=== PATIENT | male | born 1950 | race Caucasian/White ===

== ENCOUNTER 2017-01-12 11:34 | Inpatient (IN) ==
[2017-01-12] MEDS ORDERED: HUMALOG SUBQ SCH (16:00)
[2017-01-12 16:37] LABS: MANUAL DIFF NEEDED? NO
[2017-01-12 16:43] LABS: ALLEN TEST NO; BE 2.8 mmoll (-3.0-3.0); BLOOD TYPE ARTERIAL; DRAW SITE R BRACHIAL; METHB 0.9 % (0.0-1.5); O2(CT) 14.4 mL/dL (15.0-23.0); PCO2(98.6) 40 mmHg (35-45); PO2(98.6) 97 mmHg (60-100); SAMPLE BLOOD; SAO2 98.6 % (95.0-100.0); THB 10.6 g/dL (11.5-17.4); pH(98.6) 7.44 (7.35-7.45)
[2017-01-12 16:46] LABS: MODALITY ROOM AIR
[2017-01-12 16:46] LABS: BASO% 0.7 % (0.0-0.8); EOS# 0.45 X1000 (0.0-0.7); EOS% 6.2 % (0.0-10.0); HEMATOCRIT 34.6 % (42.0-52.0); HEMOGLOBIN 11.4 g/dL (14.0-18.0); LYMPH# 1.26 X1000 (1.2-3.4); LYMPH% 17.5 % (20.5-51.1); MCH 28.1 PG (27-31); MCHC 32.9 g/dL (33-37); MCV 85.4 FL (81-99); MONO# 0.39 X1000 (0.11-0.59); MONO% 5.4 % (1.7-9.3); MPV 10.7 FL (7.4-10.4); NEUT% 70.2 % (42.2-75.2); PLT 260 X1000 (130-400); RBC 4.05 XMIL (4.7-6.1)
--- NOTE | 2017-01-12 16:47 | Diag Imaging Result Doc PS360 ---
EXAM: CHEST-2 VIEWS - 01/12/2017 HISTORY: SOB TECHNIQUE: Chest two views COMPARISON: 04/07/2016 FINDINGS: Heart size is normal. There is chronic mild elevation of the right hemidiaphragm. The lungs appear clear. There is no pleural effusion or pneumothorax identified. IMPRESSION: Chronic mild elevation of right hemidiaphragm. No evidence of acute disease. Electronically signed by Afshin Owens 01/12/2017 4:44 PM
[2017-01-12] MEDS: NS 1,000 ML IV SCH ×2 (16:48→21:45)
[2017-01-12] MEDS: LOVENOX SUBQ SCH (16:48)
[2017-01-12 17:03] LABS: ALBUMIN 3.5 g/dL (3.5-5.0); CALCIUM 9.3 mg/dL (8.8-10.2); POTASSIUM 4.4 mmol/L (3.5-5.1); TOTAL BILIRUBIN 0.28 mg/dL (0.20-1.00); TOTAL PROTEIN 7.4 g/dL (6.3-8.3)
[2017-01-12 17:08] LABS: HEMOGLOBIN A1C 9.1 % (4.8-6.0)
[2017-01-12] MEDS ORDERED: NITROGLYCERIN SL PRN (18:13)
[2017-01-12] MEDS ORDERED: INSULIN PEN NEEDLES ONE (21:26)
[2017-01-12] MEDS: LIPITOR PO SCH (21:45)
[2017-01-12] MEDS: TRILEPTAL PO SCH (21:45)
[2017-01-12] MEDS: LOTRISONE CREAM TOP SCH (21:45)
[2017-01-12] MEDS: TOPROL XL PO SCH (21:46)
[2017-01-12] MEDS: HUMULIN R SUBQ SCH (21:53)
[2017-01-12] MEDS: LANTUS SUBQ SCH (22:00)
--- NOTE | 2017-01-12 22:04 | HISTORY AND PHYSICAL ---
CHIEF COMPLAINT: 1. Uncontrolled diabetes. 2. Noncompliant. Blood sugars running 500. 3. Polyuria and polydipsia and he has a Pierce catheter. 4. Dehydration. 5. Dizziness. Upon standing in my office blood pressure was 90/60. HISTORY OF PRESENT ILLNESS: He is a 66-year-old, white gentleman, recently discharged from the [facility] after back surgery. He has not been followed with diet with uncontrolled diabetes. Last A1c was 11. He is noncompliant. I am afraid that he is going to go to hyperglycemic dehydration. It was extremely hot. He did not have any kind of family support. He has been hospitalized for uncontrolled diabetes and hyperglycemic dehydration. As a result, a hospital admission was warranted. PAST MEDICAL HISTORY: 1. Diastolic heart failure. EF 70%. 2. Noncritical coronary artery disease. Left heart catheterization in 2016 in [place]. 3. Uncontrolled diabetes. 4. Diabetic peripheral neuropathy. 5. Acid reflux disease. 6. Hyperlipidemia. 7. Neurogenic bladder. 8. Paroxysmal atrial fibrillation. 9. 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 10. Moderate left carotid stenosis 60-70%. 11. Moderate left SFA and common femoral artery stenosis. PAST SURGICAL HISTORY: Recent back surgery. Surgery on the left eye. Foot surgery in the left foot. MEDICINES IN MY OFFICE: Aspirin 80 mg daily, Plavix 75 daily, Lanoxin 125 mcg daily, Fenofibrate 134 mg daily, Lasix 20 mg daily, gabapentin 800 t.i.d., metformin 1000 p.o. b.i.d., Prilosec 40 daily, Trileptal 600 p.o. b.i.d. ALLERGIES: Not known. SOCIAL HISTORY: Single. Lives in [place]. No smoking. No alcohol. . 2 children. FAMILY HISTORY: Father of heart attack at 87. Mom of stroke at 91. Brothers from lung and prostate cancer and from accident. HEALTH MAINTENANCE: Last prostate exam May 2016. PSA May [address] Kiran. REVIEW OF SYSTEMS: HEENT: No headache. Slight dizziness upon standing. No earache. No sore throat. No dry mouth. Neck: Bruit on the left side. No neck pain. No goiter. Cardiopulmonary: No chest pain, shortness of breath, PND, orthopnea. GI: No nausea, vomiting, abdominal pain. No altered bowel habits. : He has a Pierce catheter for neurogenic bladder. Changing once a month. Musculoskeletal: Leg cramps left leg. Also decreased sensory exam in both feet due to neuropathy. Neurologic: No obvious focal symptoms or weakness. He has back pain. Had a recent surgery done. PHYSICAL EXAMINATION: VITAL SIGNS: Afebrile. Vitals are stable. Now blood pressure is 140/70. In my office 90/60. Heart rate is 101. 6 feet 2, 207 pounds. HEENT: Atraumatic, normocephalic. Pupils equal, react to light. TMs are normal. Nose and throat within normal limits. NECK: Supple. No lymphadenopathy. No goiter. CHEST: Bilateral air entry. No rales, no wheezing. HEART: Sounds are regular. ABDOMEN: Belly is soft, nontender. Good bowel sounds. No masses palpable. RECTAL: Deferred. Pierce catheter was placed. Decreased pulses in both feet as well as sensory exam. No signs of gangrene noted. No obvious neurological deficits. INVESTIGATIONS: CBC: White cell count 7.2, hematocrit 34, platelets 268,000. ABG: PH is 7.44, pCO2 40, PO2 97 on room air. SMA7 is normal. Glucose 308. In my office was 450. A1c 9.1. ProBNP was normal. Chest x-ray was stable. Labs in my office, PSA 1. A1c 11.4. C-peptide is 6. ASSESSMENT: A 66-year-old white gentleman admitted to the hospital with hypotension, tachycardia, uncontrolled diabetes due to noncompliance. Elevated C-peptide. The patient is taking 80 units of Lantus PLAN OF CARE: 1. Intravenous fluids. 2. Outpatient diabetic teaching classes. 3. Increase the metformin 850 mg t.i.d., along with B12 tablets. 4. Januvia and Lantus 40 units at bedtime and follow up. 5. Moderate left carotid stenosis. We will monitor once a year. Continue on aspirin, Plavix. 6. Noncritical coronary artery disease. Stable. 7. Peripheral arterial disease. Continue on aspirin, Plavix. 8. Neuropathy pain, Neurontin 800 t.i.d. 9. Paroxysmal atrial fibrillation. On Lanoxin and diltiazem. 10. Hypertension, on metoprolol. 11. Hyperlipidemia on Lipitor and Tricor. Also consider using low dose of MANPREET for diabetic nephropathy once the blood pressure is in control and we will follow up. cc: Bernard Hernadez MD MTDD
[2017-01-13] MEDS: LANTUS SUBQ SCH ×2 (01:49→21:30)
[2017-01-13 07:14] LABS: AGAP 14; BUN 16 mg/dL (8-22); CHLORIDE 100 mmol/L (98-107); COSMO 280; POTASSIUM 3.9 mmol/L (3.5-5.1); SODIUM 140 mmol/L (136-145); TCO2 26 mmol/L (25-35)
[2017-01-13] MEDS: NS 1,000 ML IV SCH ×2 (07:34→16:02)
[2017-01-13] MEDS: HUMULIN R SUBQ SCH ×4 (07:34→21:29)
[2017-01-13] MEDS: PRINIVIL PO SCH (08:26)
[2017-01-13] MEDS: PRILOSEC PO SCH (08:27)
[2017-01-13] MEDS: NEURONTIN PO SCH ×3 (08:27→16:02)
[2017-01-13] MEDS: JANUVIA PO SCH (08:27)
[2017-01-13] MEDS: TRICOR PO SCH (08:28)
[2017-01-13] MEDS: CYANOCOBALAMIN IM SCH (08:28)
[2017-01-13] MEDS: GLUCOPHAGE PO SCH ×3 (08:28→16:02)
[2017-01-13] MEDS: TRILEPTAL PO SCH ×2 (08:28→21:26)
[2017-01-13] MEDS: ASPIRIN PO SCH (08:28)
[2017-01-13] MEDS: PLAVIX PO SCH (08:28)
[2017-01-13] MEDS: LANOXIN PO SCH (08:29)
[2017-01-13] MEDS: LOTRISONE CREAM TOP SCH ×2 (08:29→21:40)
[2017-01-13] MEDS ORDERED: CARDIZEM CD PO SCH (09:00)
[2017-01-13] MEDS: LOVENOX SUBQ SCH (14:27)
[2017-01-13] MEDS: PERCOCET-5 PO PRN (16:33)
--- NOTE | 2017-01-13 19:47 | PROGRESS NOTE ---
DATE: 01/13/2017 SUBJECTIVE: The complains of back pain from the recent surgery. REVIEW OF SYSTEMS: Otherwise none reported. Input and output are positive 260. PHYSICAL EXAMINATION: vital signs: He is afebrile. Vitals are stable. He is not orthostatic. HEENT: Within normal limits. Neck: Supple. Chest: Clear. Heart: Sounds are regular. Abdomen: Belly is soft, nontender. Good bowel sounds. No focal deficits. LABORATORY: Hemoglobin A1c is 9.1. C-peptide 0.8. ASSESSMENT AND PLAN: 1. Uncontrolled diabetes. Insulinopenic. Low C-peptide. Continue on the Lantus 40 units twice daily and metformin 850 t.i.d. along with B12 tablets. 2. Deep venous thrombosis prophylaxis with Lovenox. 3. Hypotension. We will continue to monitor orthostatic. 4. We will add a low dose of Prinivil to prevent diabetic nephropathy and chronic back pain with Percocet as needed. 5. Disposition: If she is stable, we will discharge home in the morning with outpatient diabetic teaching classes. 6. Hyperlipidemia on Lipitor. 7. Left internal carotid artery stenosis and bilateral superficial femoral artery stenosis. Stable. Continue on medical management. I will follow up. LEVEL OF DOCUMENTATION: 25 minutes. cc: Bernard Hernadez MD
[2017-01-13] MEDS: TOPROL XL PO SCH (21:26)
[2017-01-13] MEDS: LIPITOR PO SCH (21:26)
[2017-01-14] MEDS: NS 1,000 ML IV SCH (04:53)
[2017-01-14] MEDS: HUMULIN R SUBQ SCH (06:20)
[2017-01-14 08:36] VITALS: BP 107/53
[2017-01-14] MEDS ORDERED: PNEUMOVAX 23 IM ONE (08:41)
[2017-01-14] MEDS: LOTRISONE CREAM TOP SCH (09:36)
[2017-01-14] MEDS: TRILEPTAL PO SCH (09:37)
[2017-01-14] MEDS: NEURONTIN PO SCH (09:37)
[2017-01-14] MEDS: PRILOSEC PO SCH (09:37)
[2017-01-14] MEDS: CYANOCOBALAMIN IM SCH (09:37)
[2017-01-14] MEDS: TRICOR PO SCH (09:37)
[2017-01-14] MEDS: PRINIVIL PO SCH (09:37)
[2017-01-14] MEDS: ASPIRIN PO SCH (09:38)
[2017-01-14] MEDS: GLUCOPHAGE PO SCH (09:38)
[2017-01-14] MEDS: PLAVIX PO SCH (09:38)
[2017-01-14] MEDS: JANUVIA PO SCH (09:38)
[2017-01-14] MEDS: LANTUS SUBQ SCH (09:38)
[2017-01-14] MEDS: LANOXIN PO SCH (09:38)
[2017-01-14] MEDS: PERCOCET-5 PO PRN (09:48)
== END 2017-01-14 11:11 | disposition home health service (06) ==
LOC: DIRADM 11:34 → 3N 12:45
PROVIDERS: ADMIT Internal Medicine; ATTEND Internal Medicine